=== PATIENT | male | born 2000 | race Caucasian/White ===

== ENCOUNTER 2024-07-07 21:35 | Emergency (ER) | payer OTHER, SELFPAY ==
[2024-07-07 21:36] VITALS: BMI 19.5
[2024-07-07 22:39] LABS: Collection Type, Urine Clean Catch; Squamous Epithelial Cell,Urine 0 /hpf (0-5)
[2024-07-07 22:51] VITALS: BP 150/75; PULSE 81; RESP 18; TEMP 36.8; O2SAT 97
[2024-07-07 23:00] LABS: Amphetamine/Methamp Scrn,U Negative (Negative); Barbiturate Screen,Urine Negative (Negative); Benzodiazepines Screen,Urine Negative (Negative); Benzoylecgonine Screen, Ur Negative (Negative); Fentanyl Screen,Urine Negative (Negative); Opiate Screen,Urine Negative (Negative); THC Screen,Urine Negative (Negative)
[2024-07-07 23:02] LABS: Amorphous Crystals,Urine Present (Absent); Bilirubin,Urine Negative (Negative); Blood,Urine Trace (Negative); Color,Urine Yellow (Lt Yel-Yel); Glucose, Urine Negative (Negative); Ketones,Urine Negative (Negative); Leukocyte Esterase,Urine Positive (Negative); Nitrite,Urine Negative (Negative); PH,Urine 7.5 (5.0-7.0); Protein,Urine 1+ (Neg - Trace); RBC,Urine 22 /hpf (0-3); Specific Gravity,Urine 1.031 (1.001-1.035); WBC,Urine 308 /hpf (0-5)
[2024-07-07 23:04] LABS: Clarity,Urine Turbid (Clear/Hazy); Culture Indicated,Urine Yes
--- NOTE | 2024-07-07 23:11 | EDNOTE_ITS ---
ED Male Genitalurinary RME/HPI General Chief complaint: Urogenital-Male Stated complaint: PAINFULL URINATION Time Seen by Provider: 07/07/24 23:17 Arrival date/time: 07/07/24 21:35 RME / HPI RME / HPI Narrative: Dr. Bradley?s Main ED Evaluation: 24yo male presents to the ED for a chief complaint of dysuria x 3 days. Patient reports associated penile discharge. He denies having multiple sexual partners. He states his partner does not have any symptoms. He denies any abdominal pain, fever, chills, back pain or any other associated symptoms. No known allergies. Related Data Previous Rx's ?Medication ?Instructions ?Recorded ondansetron 4 mg disintegrating 4 mg PO Q6H PRN nausea and 10/06/21 tablet vomiting #10 tabs ibuprofen 600 mg tablet 600 mg PO Q6H #30 tabs 02/24/23 doxycycline monohydrate 100 mg 100 mg PO BID possible chlamydia 7 07/07/24 capsule days #14 caps phenazopyridine 200 mg tablet 200 mg PO TID PRN pain 2 days #6 07/07/24 (Pyridium) tabs Allergies Allergy/AdvReac Type Severity Reaction Status Date / Time No Known Allergies Allergy Verified 07/07/24 21:38 Review of Systems Review of Systems Systems Reviewed: All systems reviewed, normal except as documented Narrative Review of Systems: Gen: No fever, no chills, no weight loss EYES: No discharge, no visual changes, no pain HEENT: No ear pain, no congestion, no sore throat PULM: No shortness of breath, no cough, no congestion CV: No chest pain, no dyspnea on exertion, no palpitations GI: No nausea, no vomiting, no diarrhea, no pain, no constipation : No frequency, no urgency, + dysuria, + penile discharge Musc/skel: No joint pain, no back pain Skin: No rash. Warm and dry. Psyc: No hallucinations, no depression Heme/Lymph: No easy bleeding or bruising tendencies Neuro: No weakness, no headache Past Medical History Social History SMOKING STATUS: Never smoker ED Exam Narrative Physical exam: GENERAL APPEARANCE: alert and oriented x 4, well-developed, well-nourished, no acute distress VITALS: All vitals were reviewed and the pulse ox is 97% on room air, which is normal according to my interpretation. HEENT: Normocephalic, atraumatic; pupils equal, round, reactive to light; EOMI; mucous membranes pink, moist; oropharynx clear NECK: Supple LUNGS: CTABL; no wheezes, no rales, no rhonchi HEART: Regular rate, regular rhythm; normal S1, S2; no murmurs ABDOMEN: non distended; normal BS; soft, no tenderness, no guarding, no rebound; no masses, no organomegaly, no hernia BACK: no CVA tenderness EXTREMITIES: atraumatic; no edema NEUROLOGIC: awake; alert and oriented x4; cranial nerves II-XII grossly intact; no focal sensory or motor deficits PSYCHIATRIC: appropriate mood and affect SKIN: warm, dry, normal color; no rashes Course Quality Measures none Orders Category Date Time Status Chlamydia/GC/TV - PCR Stat Lab 07/07/24 22:06 Received Drug Screen,Urine Stat Lab 07/07/24 22:06 Completed Urinalysis, C/S if Indicated Stat Lab 07/07/24 22:06 Completed Urine Culture Stat Lab 07/07/24 22:06 Received [email or web address] [Rocephin] Med 07/07/24 23:18 Discontinued 500 mg IM X1 ONE Vital Signs Vital signs: Vital Signs Temperature 98.2 F 07/07/24 22:51 Pulse Rate 81 07/07/24 22:51 Respiratory Rate 18 07/07/24 22:51 Blood Pressure 150/75 H 07/07/24 22:51 Pulse Oximetry (%) 97 07/07/24 22:51 Oxygen Delivery Method Room Air 07/07/24 22:51 Urogenital - Male MDM Narrative MDM Narrative:: Scribe Attestation: 07/07/24 - Lainey Hooker am scribing for and in the presence of Dr. Bradley. Patient may have gonorrhea or chlamydia, but the tests will not be available until tomorrow morning. Will treat with antibiotics to remain on the side of caution. Patient data External records reviewed:: [facility] previous records (Per chart review, patient was seen here on 02/24/23 for a dog bite.) Clinical information provided by:: patient Social determinants that could affect healthcare access:: none Patient has the following chronic illnesses:: none How is presenting disease/condition affected by chronic disease/condition?: no chronic disease Evaluation data The following diagnostics were reviewed and interpreted by me:: lab results Lab and/or radiology exams considered but not ordered:: none Interpretation Summary: UA is significant for a UTI, UDS is negative, according to my interpretation. Medications / Prescriptions Medications or Prescriptions considered but not ordered:: none Medication administrations:: Medication Administration History Discontinued Medications Ceftriaxone Sodium (Ceftriaxone Sodium 500 Mg Vial) 500 mg IM X1 ONE Stop: 07/07/24 23:19 Last Admin: 07/08/24 00:00 Dose: 500 mg Documented By: GERDA see above Consultations Consultation(s) initiated? (list below): No Diagnosis Urogenital Male Differential Diagnosis: urinary tract infection, urethritis and other (STI) Most likely diagnosis given after review of the tests above:: see below Admission Indicated Admission indicated?: not indicated Admission Request Was there a request for admission?: No Disposition Plan Disposition Plan: Discharge Discharge Attestation Discharge Attestation: The patient and all family members were given an opportunity to ask questions and understood the discharge instructions. Discharge instructions specifically effects, indications for sooner follow up or return to the emergency department, and the expected course of current diagnosis. Patient condition: Stable Discharge Plan Plan Patient Disposition: HOME (Self Care) Disposition Comment: Stable for discharge Patient condition on transfer: Stable Prescriptions/Referrals Prescriptions/Med Rec: New doxycycline monohydrate 100 mg capsule 100 mg PO BID 7 Days Qty: 14 0RF phenazopyridine [Pyridium] 200 mg tablet 200 mg PO TID PRN (Reason: pain) 2 Days Qty: 6 0RF No Action ondansetron 4 mg tablet,disintegrating 4 mg PO Q6H PRN (Reason: nausea and vomiting) Qty: 10 0RF ibuprofen 600 mg tablet 600 mg PO Q6H Qty: 30 0RF Problem List Clinical Impression: Urinary tract infection, Gonorrhea, Chlamydia infection Patient/Caregiver Discharge Instructions Discharge Activity: activity as tolerated Education Materials: Anatomy of the Male Urinary Tract, ED Bladder Infection, Male (Adult) Additional Instructions: There is one test that will not come back until tomorrow. This is the one that tests for gonorrhea and or chlamydia. You have a urinary tract infection but we cannot tell if you have the gonorrhea or chlamydia until tomorrow. 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 You also might not have either 1 of these you may have a urinary tract infection. The doxycycline will take care of that also. The Pyridium medicine is for control of the burning when you urinate symptom. The only drawback to this medicine is it will turn your urine a dark orange is red. This is normal and you should not be concerned about it. Please return to the ER for any worsening or any further medical problems. Otherwise follow-up with your primary care doctor within the next several days Print Language: Kazakh Stand Alone Forms: Marlin Award Info., Patient Portal Info Letter
[2024-07-08] MEDS: CEFTRIAXONE SODIUM 500 MG VIAL IM
[2024-07-08 08:09] LABS: Chlamydia trachomatis PCR Negative (Not Detect); Neisseria Gonorrhoeae DNA PCR Positive (Not Detect); Trichomonas Negative (Negative)
== END 2024-07-08 00:08 | disposition home or self-care (01) ==
LOC: SERX 07-08 00:53
PROVIDERS: Physician Assistant; Emergency Provider Emergency Medicine
DX: N39.0 Urinary tract infection, site not specified (principal); A54.9 Gonococcal infection, unspecified; A74.9 Chlamydial infection, unspecified
CPT/HCPCS: 80307; 81001; 87086; 87491; 87591; 87661; 96372; 99283; J0696